=== PATIENT | male | born 1935 | race Caucasian/White ===

== ENCOUNTER → 2017-02-17 | Outpatient (REF) ==
--- NOTE | 2017-02-17 14:36 | REP ---
Clinical: Postmortem evaluation. Technique: Portable supine view of the chest. Findings: Multiple bilateral rib right scapula and clavicle fractures are identified along with diffuse overlying opacities which limit evaluation. Foreign body material including two nails. Cardiac silhouette is grossly within normal limits. Impression: Post traumatic changes as described above. Signed by Maximo Cabrera MD 02/17/2017 02:28 P
--- NOTE | 2017-02-17 14:37 | REP ---
Clinical: Postmortem evaluation. Technique: Portable AP pelvis. Findings: Visualized pelvis and bilateral hips appear grossly intact. Diffuse overlying foreign body material is appreciated and nonspecific. Impression: No obvious acute fracture to the pelvis or hips. Signed by Maximo Cabrera MD 02/17/2017 02:29 P
--- NOTE | 2017-02-17 14:38 | REP ---
Clinical: Postmortem evaluation. Technique: Single portable AP view of the skull. Findings: No obvious acute fracture. Scattered foreign body material noted throughout the soft tissues. Impression: No definite skull fracture based on portable AP view. Signed by Maximo Cabrera MD 02/17/2017 02:30 P
--- NOTE | 2017-02-17 14:40 | REP ---
Clinical: Postmortem evaluation. Technique: Two portable lateral views of the cervical spine. Findings: Advanced degenerative changes are appreciated. Reversal of normal lordosis is suggested along with mild anterolisthesis at the C2-3 level. Visualized spinous processes are intact. Small amounts of subcutaneous emphysema and/or pneumocephalus suggested. No obvious skull fracture based on radiographic evaluation. Small scattered foreign body densities in the soft tissues noted. Impression: Changes as described above. Signed by Maximo Cabrera MD 02/17/2017 02:31 P
== END ==
LOC: M LAB 12:32